=== PATIENT | female | born 1985 | race Caucasian/White ===

== ENCOUNTER 2023-02-06 20:44 | Emergency (ER) | payer OTHER, SELFPAY ==
--- NOTE | ~2023-02-06 | XR_ITS ---
EXAMINATION: XR chest 1V portable Exam Date/Time: 02/06/2023 20:57 CDT HISTORY: OD Comparison: None. RESULT: Lines, tubes, and devices: None. Lungs and pleura: Clear. Cardiomediastinal silhouette: Normal. Other: No acute osseous or upper abdominal finding. IMPRESSION: No acute cardiopulmonary process. Reviewed, dictated and finalized at location K.
[2023-02-06 20:42] VITALS: BP 142/115; PULSE 135; RESP 15; TEMP 37.2; O2SAT 100
--- NOTE | 2023-02-06 20:49 | ECG_ITS ---
Measurements Intervals [place] Rate: 109 P: 64 MN: 163 QRS: 41 QRSD: 91 T: 51 QT: 337 QTc: 455 Interpretive Statements SINUS TACHYCARDIA POSSIBLE LEFT ATRIAL ENLARGEMENT ABNORMAL ECG NO PREVIOUS ECG AVAILABLE FOR COMPARISON Electronically Signed On 02-06-2023 21:16:26 CDT by Darrell Hutchins D.O.
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
[2023-02-06 21:14] LABS: Basophils Absolute Auto 0.1 K/mm3 (0.0-0.1); Basophils Percent Auto 0.9 % (0.2-1.2); Eosinophils Absolute Auto 0.2 K/mm3 (0-0.3); Hematocrit 37.7 % (37.0-47.0); Hemoglobin 12.2 g/dL (12.0-15.0); Immature Granulocyte Absolute 0.03 K/mm3 (0.00-0.031); Immature Granulocyte Percent A 0.4 % (0-0.5); Lymphocytes Absolute Auto 2.06 K/mm3 (0.9-3.2); Lymphocytes Percent Auto 26.3 % (18.3-44.2); Mean Corpuscular HGB Conc 32.4 g/dl (32-36); Mean Corpuscular Hemoglobin 27.7 pg (26-34); Mean Corpuscular Volume 85.5 fl (80-100); Mean Platelet Volume 9.1 fl (7.4-10.4); Monocytes Percent Auto 12.2 % (2.6-8.5); Neutrophils Absolute Auto 4.6 K/mm3 (1.3-6.7); Neutrophils Percent Auto 58.2 % (45.5-73.1); Platelet Count Result 265 k/mm3 (150-375); Red Blood Count 4.41 M/mm3 (4.2-5.4); Red Cell Distribution Width 12.2 % (11.5-14.5); White Blood Count 7.8 K/mm3 (4.5-10.0)
[2023-02-06] MEDS: SODIUM CHLORIDE 0.9% IV 2,000 ML 999 ML IV CONT (21:21)
[2023-02-06 21:25] LABS: Phosphorus 4.3 mg/dL (2.5-4.5)
[2023-02-06 21:27] LABS: Alanine Aminotransferase 26 U/L (6-35); Albumin Level 4.3 g/dL (3.5-5.1); Alkaline Phosphatase 84 U/L (38-126); Anion Gap 9 mmol/L (8-16); Aspartate Amino Transferase 27 U/L (14-36); Bilirubin,Total 0.3 mg/dL (0.2-1.3); Blood Urea Nitrogen 11 mg/dL (7-17); Calcium 8.8 mg/dL (8.4-10.2); Carbon Dioxide 28 mmol/L (22-30); Chloride 101 mmol/L (98-107); Creatine Kinase 93 U/L (30-135); Estimated CRCL calculation 72 ml/min; Estimated Glomerular Filt Rate > 60; Ethanol < 10 mg/dL (<10); Glucose 106 mg/dL (65-110); Lipase 109 U/L (23-300); Magnesium 1.6 mg/dL (1.6-2.3); Potassium 3.8 mmol/L (3.4-5.0); Sodium 138 mmol/L (137-145)
[2023-02-06 21:34] VITALS: BP 102/77; PULSE 120; RESP 25; O2SAT 100
--- NOTE | 2023-02-06 22:23 | PC.NURSE ---
Spoke with poison control regarding patient status and POC. Poison control advises patient be monitored for at a few hours while reassessing the need for narcan. Will call back for remaining labs not yet resulted
[2023-02-06 23:39] VITALS: BP 108/73; PULSE 90; RESP 12; O2SAT 97
[2023-02-07 00:50] VITALS: BP 94/59; PULSE 77; RESP 10; O2SAT 98
[2023-02-07] MEDS: NALOXONE HCL 0.4 MG/ML VIAL 0.1 MG IV PUSH ×2 (00:56→02:54)
[2023-02-07 00:57] VITALS: BP 94/59; PULSE 85; RESP 11; O2SAT 100
[2023-02-07 05:52] VITALS: BP 90/55; PULSE 73; RESP 12; O2SAT 100
[2023-02-07 06:54] VITALS: BP 90/64; PULSE 79; RESP 17; O2SAT 98
== END 2023-02-07 06:55 | disposition home or self-care (01) ==
PROVIDERS: Emergency Provider Emergency Medicine
DX: T40.411A Poisoning by fentanyl or fentanyl analogs, accidental (unintentional), initial encounter (principal); F19.90 Other psychoactive substance use, unspecified, uncomplicated; Z59.00 Homelessness unspecified; R00.0 Tachycardia, unspecified; R94.31 Abnormal electrocardiogram [ECG] [EKG]
CPT/HCPCS: 36415; 71045; 80053; 80307; 82550; 83605; 83690; 83735; 84100; 85025; 93005; 96361; 96374; 99284; J2310; J7030